=== PATIENT | female | born 1960 | race Caucasian/White ===

== ENCOUNTER 2016-11-09 03:52 | Inpatient (IN) | payer OTHER ==
[2016-11-09] VITALS (9 sets, daily range): BP systolic 90–106; BP diastolic 53–70; PULSE 55–64; TEMP 36.4–37.1; O2SAT 93–97; Ht 157.5 cm; Wt 70.2 kg
[~2016-11-09] VITALS: Ht 157.5 cm; Wt 70.2 kg
[~2016-11-09 03:52] MED LIST: CARI350T28 PO; CITA10TA8 PO; LORA1TAB13 PO; MONT1TAB3 PO; OXYB10TA PO; PRED10TA PO; PROP80TA2 PO; ROPI3TAB PO
[2016-11-09] MEDS ORDERED: NITROGLYCERIN 0.4 MG SL PER TAB CHARGE SL STA ×2 (04:08→04:39)
[2016-11-09] MEDS ORDERED: ASPIRIN 81 MG CHEW PO STA (04:08)
[2016-11-09] MEDS ORDERED: ASPIRIN 324 MG CHEW ONE (04:13)
[2016-11-09 04:21] LABS: HEMATOCRIT 41.3 % (37-47); MEAN CELL VOLUME 93.2 fL (80-100); MEAN CORPUSCULAR HEMOGLOBIN 30.7 pg (25-34); MEAN CORPUSCULAR HGB CONC 32.9 g/dl (32-36); MEAN PLATELET VOLUME 10.3 fL (7.4-10.4); PLATELET COUNT 333 K/uL (130-400); RED BLOOD COUNT 4.43 M/uL (4.2-5.4); WHITE BLOOD COUNT 14.38 K/uL (4.8-10.8)
[2016-11-09 04:36] LABS: ALT/SGPT 36 U/L (12-78); AST/SGOT 15 U/L (15-37); BLOOD UREA NITROGEN 18 mg/dl (7-18); BUN/CREATININE RATIO 23.1 (10-20); CALCIUM 9.1 mg/dl (8.5-10.1); CARBON DIOXIDE 30 mmol/L (21-32); CHLORIDE 107 mmol/L (98-107); CREATININE 0.79 mg/dl (0.60-1.20); GLUCOSE 94 mg/dl (70-99); POTASSIUM 4.2 mmol/L (3.5-5.1); SODIUM 140 mmol/L (136-145)
[2016-11-09 04:39] LABS: ALKALINE PHOSPHATASE 99 U/L (45-117)
--- NOTE | 2016-11-09 04:49 | EMERGENCY ROOM VISIT NOTE ---
ED Visit Note First contact with patient: 03:54 Patient evaluated by me at bedside I agree with the evaluation by the physician workers compensation claims assistant. Patient has left arm pain nausea slight shortness of breath concerning for acute coronary syndrome. Patient's current workup is negative and she is pain-free she will be admitted to the hospitalists for further cardiac evaluation Problem List Medical Problems: (1) Bilateral tubal ligation Status: Resolved (2) Extraction of cataract Status: Resolved (3) Mitral valve prolapse Status: Chronic Current/Historical Medications Scheduled Citalopram Hydrobromide (Celexa), 10 MG PO DAILY Montelukast Sodium (Singulair), 10 MG PO DAILY Oxybutynin Chloride Er (Ditropan Xl), 10 MG PO DAILY Propranolol (Inderal), 80 MG PO BID Ropinirole (Requip), 3 MG PO DAILY Scheduled PRN Carisoprodol (Soma), 350 MG PO TID PRN Lorazepam (Lorazepam), 1 MG PO HS PRN Allergies Coded Allergies: Penicillins (Unverified Allergy, Unknown, 02/17/11) Vital Signs Date Time Temp Pulse Resp B/P (MAP) Pulse Ox O2 Delivery O2 Flow Rate FiO2 11/09/16 04:47 60 18 104/52 96 Nasal Cannula 2.0 11/09/16 04:26 63 18 108/73 95 Room Air 11/09/16 04:11 100 Room Air 11/09/16 04:11 100 Room Air 11/09/16 04:05 100 Room Air 11/09/16 04:04 65 11/09/16 04:03 65 18 145/80 100 Room Air 11/09/16 03:55 36.9 65 18 151/88 97 Room Air Laboratory Results 11/09/16 04:05 Red Blood Count 4.43, Mean Corpuscular Volume 93.2, Mean Corpuscular Hemoglobin 30.7, Mean Corpuscular Hemoglobin Concent 32.9, Mean Platelet Volume 10.3 11/09/16 04:05 Test 11/09/16 04:05 11/09/16 04:17 White Blood Count 14.38 K/uL (4.8-10.8) Red Blood Count 4.43 M/uL (4.2-5.4) Hemoglobin 13.6 g/dL (12.0-16.0) Hematocrit 41.3 % (37-47) Mean Corpuscular Volume 93.2 fL (80-100) Mean Corpuscular Hemoglobin 30.7 pg (25-34) Mean Corpuscular Hemoglobin Concent 32.9 g/dl (32-36) Platelet Count 333 K/uL (130-400) Mean Platelet Volume 10.3 fL (7.4-10.4) RDW Standard Deviation 45.3 fL (36.4-46.3) RDW Coefficient of Variation 13.3 % (11.5-14.5) Anion Gap 3.0 mmol/L (3-11) Est Creatinine Clear Calc Drug Dose 75.7 ml/min Estimated GFR () 98.4 Estimated GFR (Non- 84.9 BUN/Creatinine Ratio 23.1 (10-20) Calcium Level 9.1 mg/dl (8.5-10.1) Total Bilirubin 0.4 mg/dl (0.2-1) Direct Bilirubin < 0.1 mg/dl (0-0.2) Aspartate Amino Transf (AST/SGOT) 15 U/L (15-37) Alanine Aminotransferase (ALT/SGPT) 36 U/L (12-78) Alkaline Phosphatase 99 U/L (45-117) Total Protein 7.8 gm/dl (6.4-8.2) Albumin 3.8 gm/dl (3.4-5.0) Bedside Troponin I < 0.030 ng/ml (0-0.045) Medications Administered Medications (Trade) Dose Ordered Sig/Elsy Route Start Time Stop Time Status Last Admin Dose Admin Nitroglycerin (Nitrostat Tab) 0.4 mg NOW STAT 11/09/16 04:08 11/09/16 04:11 DC 11/09/16 04:16 0.4 MG Aspirin (Aspirin Chew) 324 mg STK-MED ONCE .ROUTE 11/09/16 04:13 11/09/16 04:14 DC 11/09/16 04:15 324 MG Nitroglycerin (Nitrostat Tab) 0.4 mg NOW STAT 11/09/16 04:39 11/09/16 04:41 DC 11/09/16 04:39 0.4 MG Departure Information Referrals Rory Ma M.D. (PCP) Patient Instructions My [facility]
[2016-11-09] MEDS ORDERED: FLUO40CA8 PO (04:58)
[2016-11-09] MEDS ORDERED: MIRT15TA PO (04:58)
[2016-11-09] MEDS ORDERED: LYR50 PO (04:58)
--- NOTE | 2016-11-09 04:58 | History and Physical ---
History & Physical Date & Time of Service: Nov 09, 2016 at 04:58 . Chief Complaint: shoulder pain, chest pain, SOB . Primary Care Physician: Rory Ma M.D. . History of Present Illness Source: patient, family, clinic records, hospital records 56-year-old female followed by Dr. Ma for [facility]. History of mitral valve prolapse, palpitations, and other problems noted below. She had a yard sale at her home yesterday and had been very busy for the past few days preparing for it. Around 6:00 last evening she laid down on the couch. Noted left shoulder pain described as a pressure that lasted for about 10 minutes. A few hours later she noticed some dyspnea and palpitations. Around 3:00 this morning she had recurrent left shoulder pain, dyspnea, nausea. She took 2 aspirin tablets. Came to the ED for evaluation. There she developed midsternal pressure had persistent dyspnea. Ongoing intermittent left shoulder pain. Received 2 doses of nitroglycerin in the ED with improvement of the chest pressure. Mother apparently had a myocardial infarction in her 50s. Patient does not have any known personal risk actors for ischemic heart disease. . Past Medical/Surgical History Chronic and Resolved Medical Problems: (1) Allergic rhinitis Status: Chronic (2) Anxiety Status: Chronic (3) Bilateral tubal ligation Status: Resolved (4) Depression Status: Chronic (6) Legal blindness Status: Chronic (7) Mitral valve prolapse Status: Chronic (8) Nystagmus Status: Chronic Surgical Problems: (1) Status post cataract extraction Status: Chronic (2) Status post tubal ligation Status: Chronic . Family History FATHER Diabetes mellitus MOTHER Myocardial infarction BROTHER Cancer of gallbladder Social History Smoking Status: Never Smoker Alcohol Use: occasionally Drug Use: none Marital Status: Housing status: lives with family Occupational Status: employed Multi-Drug Resistant Organisms History of MDRO: No Allergies Coded Allergies: Penicillins (Unverified Allergy, Unknown, 11/09/16) Home Medications Scheduled Clonazepam (Klonopin), 0 PO UD Fluoxetine (Prozac), 80 MG PO DAILY Mirtazapine (Remeron), 15 MG PO HS Pregabalin (Lyrica), 50 MG PO BID Propranolol HCl (Propranolol HCl ER), 80 MG PO BID Ropinirole (Requip), 3 MG PO HS Scheduled PRN Carisoprodol (Soma), 350 MG PO TID PRN Hydrocodone/Acetaminophen 5MG/325MG (Points 5MG/325MG), 1 TABLET PO Q8 PRN for Pain Lorazepam (Lorazepam), 1 MG PO HS PRN for Sleep Montelukast Sodium (Singulair), 10 MG PO DAILY PRN for ALLERGIES Review of Systems Constitutional: No fever, No weight loss Eyes: + problem reported (legally blind) ENT: + nasal symptoms Respiratory: No cough Cardiovascular: + problem reported (as noted above in HPI) Abdomen: + nausea, + constipation, No vomiting, No diarrhea, No GI bleeding Musculoskeletal: + joint pain (back) Neurologic: + problem reported (neuropathy) Psychiatric: + depression symptoms, + anxiety, + insomnia Endocrine: + fatigue, + excessive thirst, No excessive urination Hematologic / Lymphatic: No abnormal bleeding/bruising, No swollen lymph nodes Integumentary: No rash, No itch, No new/changing skin lesions Physical Exam Vital Signs Date Time Temp Pulse Resp B/P (MAP) Pulse Ox O2 Delivery O2 Flow Rate FiO2 11/09/16 04:47 60 18 104/52 96 Nasal Cannula 2.0 11/09/16 04:26 63 18 108/73 95 Room Air 11/09/16 04:11 100 Room Air 11/09/16 04:11 100 Room Air 11/09/16 04:05 100 Room Air 11/09/16 04:04 65 11/09/16 04:03 65 18 145/80 100 Room Air 11/09/16 03:55 36.9 65 18 151/88 97 Room Air General Appearance: WD/WN, no apparent distress Head: normocephalic, atraumatic Eyes: sclerae normal, + pertinent finding (s/p right iridectomy; horizontal nystagmus) ENT: normal ENT inspection, hearing grossly normal, pharynx normal Neck: supple, no adenopathy, thyroid normal, trachea midline Respiratory/Chest: lungs clear, normal breath sounds, no respiratory distress, no accessory muscle use Cardiovascular: regular rate, rhythm, no edema, no gallop, no JVD, no murmur, normal peripheral pulses Abdomen/GI: normal bowel sounds, non tender, soft, no organomegaly, no pulsatile mass Extremities/Musculoskelatal: no calf tenderness, no pedal edema Neurologic/Psych: no motor/sensory deficits (motor strength 5/5 bilat), alert, oriented x 3, + pertinent finding (lateral nystagmus; anxious) Skin: normal color, warm/dry, no rash Lymphatic: no adenopathy (cervical) Diagnostics Laboratory Results Results Past 24 Hours Test 11/09/16 04:05 11/09/16 04:17 Range/Units White Blood Count 14.38 4.8-10.8 K/uL Red Blood Count 4.43 4.2-5.4 M/uL Hemoglobin 13.6 12.0-16.0 g/dL Hematocrit 41.3 37-47 % Mean Corpuscular Volume 93.2 80-100 fL Mean Corpuscular Hemoglobin 30.7 25-34 pg Mean Corpuscular Hemoglobin Concent 32.9 32-36 g/dl Platelet Count 333 130-400 K/uL Mean Platelet Volume 10.3 7.4-10.4 fL RDW Standard Deviation 45.3 36.4-46.3 fL RDW Coefficient of Variation 13.3 11.5-14.5 % Sodium Level 140 136-145 mmol/L Potassium Level 4.2 3.5-5.1 mmol/L Chloride Level 107 98-107 mmol/L Carbon Dioxide Level 30 21-32 mmol/L Anion Gap 3.0 3-11 mmol/L Blood Urea Nitrogen 18 7-18 mg/dl Creatinine 0.79 0.60-1.20 mg/dl Est Creatinine Clear Calc Drug Dose 75.7 ml/min Estimated GFR () 98.4 Estimated GFR (Non- 84.9 BUN/Creatinine Ratio 23.1 10-20 Random Glucose 94 70-99 mg/dl Calcium Level 9.1 8.5-10.1 mg/dl Total Bilirubin 0.4 0.2-1 mg/dl Direct Bilirubin < 0.1 0-0.2 mg/dl Aspartate Amino Transf (AST/SGOT) 15 15-37 U/L Alanine Aminotransferase (ALT/SGPT) 36 12-78 U/L Alkaline Phosphatase 99 45-117 U/L Total Protein 7.8 6.4-8.2 gm/dl Albumin 3.8 3.4-5.0 gm/dl Bedside Troponin I < 0.030 0-0.045 ng/ml Diagnostic Radiology Portable chest x-ray reviewed by the undersigned. Normal cardiac silhouette. No infiltrates, effusions, CHF, pneumothorax. Formal interpretation by Radiology pending. . EKG EKG performed at 04:03 reviewed and demonstrated NSR at 63 / minute, no acute ST or T-wave abnormalities. . Impression Assessment and Plan SHOULDER PAIN / CHEST PAIN / NAUSEA / SOB / PALPITATIONS Chest pain associated symptoms at rest, but following a few busy days of physical activity. Took aspirin at home and received an additional dose in the ED. Symptoms improved after receiving nitroglycerin in ED. Mother had a myocardial infarction in her 50s. EKG in ED does not show any acute changes. First troponin is normal. Check fasting lipid profile. Check serial cardiac markers and EKGs. Check resting echocardiogram. Check d-dimer with next troponin to screen for thromboembolic disease. Monitor for arrhythmias. Continue propranolol. Further evaluation to be determined after initial studies are completed. Consider noncardiac etiologies of chest pain if evaluation is unremarkable. ANXIETY / DEPRESSION Continue usual medications. DVT PROPHYLAXIS Low risk for DVT at this time. Prophylaxis not indicated. Ambulate. RESUSCITATION STATUS Full resuscitation.. DISPOSITION Observation status on Telemetry Unit. Expected discharge to home. Family Medicine follow-up with Dr. Ma. . VTE Prophylaxis Risk Level: Very Low Given or contraindicated: Treatment not indicated
[2016-11-09] MEDS ORDERED: NITROGLYCERIN 0.4 MG SL PER TAB CHARGE SL PRN (05:00)
[2016-11-09] MEDS ORDERED: HYDR-5688 PO (05:00)
--- NOTE | 2016-11-09 05:07 | EMERGENCY ROOM VISIT NOTE ---
History First contact with patient: 03:54 Chief Complaint: CARDIAC ASSESSMENT Stated Complaint: SOB,INDIGESTION,CHEST PAIN/SHOULDER Nursing Triage Summary: pt c/o feeling tired after eating dinner and then she developed left shoulder pain denies cp or shortness of breath. History of Present Illness The patient is a 56 year old female who presents to the Emergency Room with complaints of left upper shoulder and neck and arm pain since 7:30 8:00 last night with nausea and diaphoresis. Patient states the symptoms are worse when she walks. No direct injury to the area. Patient has mitral valve prolapse. She does not have a senior graphic designer. No recent echo. No recent stress test. Patient does have a family history of heart disease of her mother having a heart attack in her 50s. Patient does not smoke. No blood pressure or cholesterol or diabetes either. No recent travel. Patient denies back pain, leg pain or swelling, abdominal pain, vomiting, diarrhea. She is tolerate by mouth fluids but has a lack of appetite. Review of Systems See HPI for pertinent positives & negatives. A total of 10 systems reviewed and were otherwise negative. Past Medical/Surgical History Medical Problems: (1) Bilateral tubal ligation (2) Chest pain (3) Extraction of cataract (4) Mitral valve prolapse Social History Smoking Status: Never Smoker Alcohol Use: occasionally Drug Use: none Marital Status: Housing Status: lives with significant other Occupation Status: employed Current/Historical Medications Scheduled Fluoxetine (Prozac), 80 MG PO DAILY Mirtazapine (Remeron), 15 MG PO HS Pregabalin (Lyrica), 50 MG PO BID Propranolol (Inderal), 80 MG PO BID Ropinirole (Requip), 3 MG PO DAILY Scheduled PRN Carisoprodol (Soma), 350 MG PO TID PRN Hydrocodone/Acetaminophen 5MG/325MG ([place] 5MG/325MG), 1 TABLET PO Q8 PRN for Pain Lorazepam (Lorazepam), 1 MG PO HS PRN for Sleep Montelukast Sodium (Singulair), 10 MG PO DAILY PRN for ALLERGIES Miscellaneous Medications Prednisone (Prednisone), 10 MG PO Physical Exam Vital Signs Date Time Temp Pulse Resp B/P (MAP) Pulse Ox O2 Delivery O2 Flow Rate FiO2 11/09/16 04:47 60 18 104/52 96 Nasal Cannula 2.0 11/09/16 04:26 63 18 108/73 95 Room Air 11/09/16 04:11 100 Room Air 11/09/16 04:11 100 Room Air 11/09/16 04:05 100 Room Air 11/09/16 04:04 65 11/09/16 04:03 65 18 145/80 100 Room Air 11/09/16 03:55 36.9 65 18 151/88 97 Room Air Physical Exam VITALS: Vitals are noted on the nurse's note and reviewed by myself. Vital signs stable. GENERAL: Pleasant female, in no acute distress, nondiaphoretic, well-developed well-nourished. SKIN: The skin was without rashes, erythema, edema, or bruising. There is no tenting of the skin. Capillary reflex less than 2 seconds. HEAD: Normocephalic atraumatic. EARS: External auditory canals clear, tympanic membranes pearly donaldson without erythema or effusion bilaterally. EYES: Pupils equal round and reactive to light and accommodation. Conjunctivae without injection, sclerae without icterus. Extraocular movements intact. NOSE: Patent, turbinates without inflammation or discharge. MOUTH: Mucous membranes moist. Pharynx without erythema or exudate. Uvula midline. Airway patent. Tongue does not deviate. NECK: Supple without nuchal rigidity. No lymphadenopathy. No thyromegaly. Cervical spine is nontender. No JVD. HEART: Regular rate and rhythm LUNGS: Clear to auscultation bilaterally without wheezes, rales or rhonchi. No dullness to percussion. No retractions or accessory muscle use. ABDOMEN: Positive bowel sounds x 4. Normal tympanic percussion. Soft, nontender, without masses or organomegaly. Kang sign negative. No guarding or rebound tenderness. MUSCULOSKELETAL: No muscle atrophy, erythema, or edema noted. NEURO: Patient was alert and oriented to person place and time. Normal sensation to light and sharp touch. No focal neurological deficits. Medical Decision & Procedures Laboratory Results 11/09/16 04:05 Red Blood Count 4.43, Mean Corpuscular Volume 93.2, Mean Corpuscular Hemoglobin 30.7, Mean Corpuscular Hemoglobin Concent 32.9, Mean Platelet Volume 10.3 11/09/16 04:05 Test 11/09/16 04:05 11/09/16 04:17 White Blood Count 14.38 K/uL (4.8-10.8) Red Blood Count 4.43 M/uL (4.2-5.4) Hemoglobin 13.6 g/dL (12.0-16.0) Hematocrit 41.3 % (37-47) Mean Corpuscular Volume 93.2 fL (80-100) Mean Corpuscular Hemoglobin 30.7 pg (25-34) Mean Corpuscular Hemoglobin Concent 32.9 g/dl (32-36) Platelet Count 333 K/uL (130-400) Mean Platelet Volume 10.3 fL (7.4-10.4) RDW Standard Deviation 45.3 fL (36.4-46.3) RDW Coefficient of Variation 13.3 % (11.5-14.5) Anion Gap 3.0 mmol/L (3-11) Est Creatinine Clear Calc Drug Dose 75.7 ml/min Estimated GFR () 98.4 Estimated GFR (Non- 84.9 BUN/Creatinine Ratio 23.1 (10-20) Calcium Level 9.1 mg/dl (8.5-10.1) Total Bilirubin 0.4 mg/dl (0.2-1) Direct Bilirubin < 0.1 mg/dl (0-0.2) Aspartate Amino Transf (AST/SGOT) 15 U/L (15-37) Alanine Aminotransferase (ALT/SGPT) 36 U/L (12-78) Alkaline Phosphatase 99 U/L (45-117) Total Protein 7.8 gm/dl (6.4-8.2) Albumin 3.8 gm/dl (3.4-5.0) Bedside Troponin I < 0.030 ng/ml (0-0.045) Medications Administered Medications (Trade) Dose Ordered Sig/Elsy Route Start Time Stop Time Status Last Admin Dose Admin Nitroglycerin (Nitrostat Tab) 0.4 mg NOW STAT SL 11/09/16 04:08 11/09/16 04:11 DC 11/09/16 04:16 0.4 MG Aspirin (Aspirin Chew) 324 mg STK-MED ONCE .ROUTE 11/09/16 04:13 11/09/16 04:14 DC 11/09/16 04:15 324 MG Nitroglycerin (Nitrostat Tab) 0.4 mg NOW STAT SL 11/09/16 04:39 11/09/16 04:41 DC 11/09/16 04:39 0.4 MG ED Course Prior records/ancillary studies reviewed. Triage Nursing notes reviewed. Additional history obtained from family. The patient's history was concerning for chest pain. Differential diagnosis: Etiologies such as cardiac ischemia, aortic dissection, pulmonary embolism, pneumonia, pneumothorax, musculoskeletal, infections, pericarditis, myocarditis , esophageal rupture, gastrointestinal, as well as others were entertained. Physical examination: As above. ER treatment provided: ASA, nitro On reassessment the patient felt better. Diagnostic interpretation by me: The electrocardiogram was negative for pathologic change. Normal sinus, normal intervals, no acute ST-T wave changes. Impression normal sinus rhythm interpreted by myself The labs revealed negative troponin. Stable H&H Imaging studies: Chest x-ray with small secure density in the right lower lung base, no pneumothorax or free air per my interpretation Consultation: A consultation was placed with the hospitalist, Dr Short. The case was discussed and diagnostics were reviewed. The patient was evaluated in the ER for further treatment. Exam and history seem consistent with concerns for possible cardiac in etiology. Patient felt better after the nitroglycerin. Patient had left-sided neck, shoulder and arm pain with diaphoresis and nausea that was worse with exertion. There is a family history of heart disease. No recent stress test or echo. Patient will be evaluated by medicine for possible admission. By the evaluation outlined above emergent etiologies such as aortic dissection , pulmonary embolism, pneumonia, pneumothorax, infections, pericarditis, myocarditis, gastrointestinal, as well as others were deemed relatively unlikely. The pt informed about the findings as listed above. All questions were answered and pleased with the treatment. Case reviewed with my attending. Medical Decision As above Medication Reconcilliation Current Medication List: was personally reviewed by me Blood Pressure Screening Patient's blood pressure: Elevated blood pressure Blood pressure disposition: Elevated BP felt to be situational Impression Primary Impression: Diaphoresis Additional Impressions: Nausea Neck pain Left upper arm pain Departure Information Dispostion Being Evaluated By Hospitalist Condition FAIR Referrals Rory Ma M.D. (PCP) Patient Instructions My [facility] Problem Qualifiers
[2016-11-09 05:08] LABS: BASO % 0.1 %; BASO ABS # 0.02 K/uL (0-0.2); COMPLETE YES; EOS % 1.2 %; HYPERSEGMENTED POLYS 1+; IG% 0.5 %; LYMPH % 37.4 %; LYMPH ABS # 5.38 K/uL (1.2-3.4); NEUT % 51.8 %
[2016-11-09] MEDS ORDERED: CLON1TAB3 PO (05:36)
[2016-11-09] MEDS ORDERED: INDSR80 PO (05:36)
[2016-11-09] MEDS ORDERED: IV FLUIDS COMPLETED PRN (06:00)
[2016-11-09 07:06] LABS: CHOLESTEROL/HDL RATIO 5.5
--- NOTE | 2016-11-09 08:01 | DIAGNOSTIC IMAGING REPORT ---
CHEST ONE VIEW PORTABLE CLINICAL HISTORY: Shortness of breath, chest pain. COMPARISON STUDY: Chest radiograph December 12, 2012. FINDINGS: A 1.5 cm density projecting over the right lower hemithorax is likely related to a rib. There is no pneumothorax or pleural effusion. Cardiac size is normal. Mediastinal contours are normal. There is no evidence of pulmonary edema. The appearance of the chest is unchanged. IMPRESSION: No acute cardiopulmonary findings. Electronically signed by: Reed Mendiola M.D. 11/09/2016 8:00 AM Dictated Date/Time: 11/09/2016 7:58 AM
[2016-11-09] MEDS: PREGABALIN 50 MG CAP PO SCH ×2 (08:08→21:10)
[2016-11-09] MEDS: CLONAZEPAM 0.5 MG TAB PO SCH (08:08)
[2016-11-09] MEDS: FLUOXETINE HCL 20 MG CAP PO SCH (08:09)
[2016-11-09] MEDS: ASPIRIN 81 MG ECTAB PO SCH (08:09)
[2016-11-09] MEDS: PROPRANOLOL HCL 80 MG LA CAP PO SCH ×2 (08:12→21:11)
--- NOTE | 2016-11-09 08:58 | Progress Note ---
Medicine Progress Note Date & Time of Visit: Nov 09, 2016 at 08:53. Subjective patient seen sitting up in bed, comfortable states chest pain and shoulder pain has resolved reports palpitations no dizziness, headache, nausea, abdominal pain apart from shoulder pain, patient also developed chest tightness, nausea and indigestion early this morning resolved with nitro mother had heart attack at the age of 50s brother just had a heart attack with 2 stents age 56 Objective Last 8 Hrs Date Time Temp Pulse Resp B/P (MAP) Pulse Ox O2 Delivery O2 Flow Rate FiO2 11/09/16 08:11 64 103/61 (75) 11/09/16 08:07 62 93/61 (72) 11/09/16 07:45 36.4 59 18 90/54 (66) 97 11/09/16 06:29 36.8 60 16 99/66 96 Nasal Cannula 2.0 11/09/16 05:34 57 18 103/60 96 Nasal Cannula 2.0 11/09/16 04:47 60 18 104/52 96 Nasal Cannula 2.0 11/09/16 04:26 63 18 108/73 95 Room Air 11/09/16 04:11 100 Room Air 11/09/16 04:11 100 Room Air 11/09/16 04:05 100 Room Air 11/09/16 04:04 65 11/09/16 04:03 65 18 145/80 100 Room Air 11/09/16 03:55 36.9 65 18 151/88 97 Room Air Physical Exam: General- oriented x 3 not in distress, speaks in sentences with no effort Eyes- EOMI, anicteric ENT- oropharynx clear Neck- supple, no JVD, no adenopathy, no thyromegaly Lungs- clear breath sounds bilaterally Heart- regular rhythm; no murmur, normal rate Abdomen- normal bowel sounds, soft, nontender Extremities- no pretibial edema, no calf tenderness Neuro- alert, oriented x 3; no gross focal deficits Skin- warm & dry Laboratory Results: Last 24 Hours Test 11/09/16 04:05 11/09/16 04:17 11/09/16 06:49 White Blood Count 14.38 K/uL Red Blood Count 4.43 M/uL Hemoglobin 13.6 g/dL Hematocrit 41.3 % Mean Corpuscular Volume 93.2 fL Mean Corpuscular Hemoglobin 30.7 pg Mean Corpuscular Hemoglobin Concent 32.9 g/dl Platelet Count 333 K/uL Mean Platelet Volume 10.3 fL Neutrophils (%) (Auto) 51.8 % Lymphocytes (%) (Auto) 37.4 % Monocytes (%) (Auto) 9.0 % Eosinophils (%) (Auto) 1.2 % Basophils (%) (Auto) 0.1 % Neutrophils # (Auto) 7.44 K/uL Lymphocytes # (Auto) 5.38 K/uL Monocytes # (Auto) 1.30 K/uL Eosinophils # (Auto) 0.17 K/uL Basophils # (Auto) 0.02 K/uL RDW Standard Deviation 45.3 fL RDW Coefficient of Variation 13.3 % Immature Granulocyte % (Auto) 0.5 % Immature Granulocyte # (Auto) 0.07 K/uL Hypersegmented Polys 1+ Sodium Level 140 mmol/L Potassium Level 4.2 mmol/L Chloride Level 107 mmol/L Carbon Dioxide Level 30 mmol/L Anion Gap 3.0 mmol/L Blood Urea Nitrogen 18 mg/dl Creatinine 0.79 mg/dl Est Creatinine Clear Calc Drug Dose 75.7 ml/min Estimated GFR () 98.4 Estimated GFR (Non- 84.9 BUN/Creatinine Ratio 23.1 Random Glucose 94 mg/dl Calcium Level 9.1 mg/dl Total Bilirubin 0.4 mg/dl Direct Bilirubin < 0.1 mg/dl Aspartate Amino Transf (AST/SGOT) 15 U/L Alanine Aminotransferase (ALT/SGPT) 36 U/L Alkaline Phosphatase 99 U/L Total Protein 7.8 gm/dl Albumin 3.8 gm/dl Triglycerides Level 263 mg/dl Cholesterol Level 338 mg/dl HDL Cholesterol 62 mg/dl LDL Cholesterol, Calculated 223 mg/dl VLDL Cholesterol, Calculated 53 mg/dl Cholesterol/HDL Ratio 5.5 Bedside Troponin I < 0.030 ng/ml Assessment & Plan SHOULDER PAIN / CHEST PAIN / NAUSEA / SOB / PALPITATIONS - risk factors: heart attack - mother and brother age 50s; Dyslipidemia - first troponin negative ekg non specific t wave changes in inferior lead - follow cardiac markers, d dimer echo - will consult Cardiology DYSLIPIDEMIA - LDL 223 Chol 338 TG 263 - start Simvastatin 20mg ANXIETY / DEPRESSION stable overall continue usual meds DVT PROPHYLAXIS ambulate RESUSCITATION STATUS Full resuscitation.. DISPOSITION anticipate d/c home when medically stable ff up with Dr. Ma Current Inpatient Medications: Current Inpatient Medications Medications (Trade) Dose Ordered Sig/Elsy Route Start Time Stop Time Status Last Admin Dose Admin Acetaminophen (Tylenol Tab) 650 mg Q4H PRN PO 11/09/16 05:00 12/09/16 04:59 Nitroglycerin (Nitrostat Tab) 0.4 mg UD PRN SL 11/09/16 05:00 12/09/16 04:59 Aspirin (Ecotrin Tab) 81 mg QAM PO 11/09/16 09:00 12/09/16 08:59 11/09/16 08:09 81 MG Carisoprodol (Soma Tab) 350 mg TID PRN PO 11/09/16 05:45 12/09/16 05:44 Clonazepam (Klonopin Tab) 1 mg HS PO 11/09/16 21:00 12/09/16 20:59 Fluoxetine HCl (Prozac Cap) 80 mg DAILY PO 11/09/16 09:00 12/09/16 08:59 11/09/16 08:09 80 MG Acetaminophen/ Hydrocodone Bitart ([place] 5/325 Tab) 1 tab Q8 PRN PO 11/09/16 05:45 11/23/16 05:44 Mirtazapine (Remeron Tab) 15 mg HS PO 11/09/16 21:00 12/09/16 20:59 Pregabalin (Lyrica Cap) 50 mg BID PO 11/09/16 09:00 12/09/16 08:59 11/09/16 08:08 50 MG Propranolol HCl (Inderal LA Cap) 80 mg BID PO 11/09/16 09:00 12/09/16 08:59 11/09/16 08:12 80 MG Ropinirole HCl (Requip Tab) 3 mg HS PO 11/09/16 21:00 12/09/16 20:59 Clonazepam (Klonopin Tab) 0.5 mg DAILY PO 11/09/16 09:00 12/09/16 08:59 11/09/16 08:08 0.5 MG Miscellaneous (Iv Fluids Completed) 1 ea PRN PRN N/A 11/09/16 06:00 11/09/17 05:59
--- NOTE | 2016-11-09 12:10 | ECHOCARDIOGRAM REPORT ---
*NOTICE TO RECEIVING REPUBLICAN AGENCY This information is strictly Confidential and protected under [place] law. [place] law prohibits you from making any further disclosure of this information unless further disclosure is expressly permitted by the written consent of the person to whom it pertains or is authorized by law. A general authorization for the release of medical or other information is not sufficient for this purpose. Hospital accepts no responsibility if the information is made available to any other person, INCLUDING THE PATIENT. Interpretation Summary * Name: AMARIS ROSADO Study Date: 11/09/2016 09:52 AM BP: 103/60 mmHg * Patient Location: [facility]\S\N286\S\1 HR: 65 * : 1960 (M/d/yyyy) Gender: Female Height: 62 in * Age: 56 yrs Ethnicity: CA Weight: 158 lb * Ordering Physician: Rob Cullen * Referring Physician: Self, Referred * Performed By: Clyde Sheriff RDCS * * Reason For Study: Chest pain * BSA: 1.7 m2 * -- Conclusions -- * No significant change compared to previous study. * Normal LV chamber size and wall thickness. * Normal LV systolic function, EF 60-65%. * No segmental left ventricular wall motion abnormalities are noted. * Grade II diastolic dysfunction. * Moderate mitral valve prolapse with mild to moderate mitral regurgitation. Procedure Details * A complete two-dimensional transthoracic echocardiogram was performed (2D, M-mode, Doppler and color flow Doppler). * The study was technically adequate. Left Ventricle * The left ventricle is normal in size. * There is normal left ventricular wall thickness. * Left ventricular systolic function is normal. * No segmental left ventricular wall motion abnormalities are noted. * Ejection Fraction = 60-65%. * The left ventricular wall motion is normal. Right Ventricle * The right ventricular cavity size is normal (basal dimension <4.2 cm in right ventricular apical 4-chamber view). * The right ventricular systolic function is normal as assessed by tricuspid annular plane systolic excursion (TAPSE) (normal >1.5 cm). Atria * The left atrial size is normal. * Right atrial size is normal. * No ASD detected; PFO is not assessed. Mitral Valve * The mitral valve leaflets appear thickened, but open well. * There is moderate mitral valve prolapse. * There is no mitral valve stenosis. * There is mild to moderate mitral regurgitation. Tricuspid Valve * The tricuspid valve is normal in structure and function. Aortic Valve * The aortic valve is normal in structure and function. Pulmonic Valve * The pulmonary valve is not well seen, but the Doppler examination is normal without significant regurgitation or stenosis. Great Vessels * The aortic root and proximal ascending aorta are normal sized. Pericardium/Pleural * There is no pericardial effusion. Left Ventricular Diastolic Function * Diastolic dysfunction, Grade II (pseudonormalization pattern). MMode 2D Measurements and Calculations IVSd 0.91 cm IVSs 1.4 cm LVIDd 4.5 cm LVIDs 2.5 cm LVPWd 0.84 cm LVPWs 1.5 cm IVS/LVPW 1.1 FS 44.5 % EDV(Teich) 93.2 ml ESV(Teich) 22.5 ml EF(Teich) 75.9 % EDV(cubed) 92.1 ml ESV(cubed) 15.8 ml EF(cubed) 82.9 % % IVS thick 49.5 % % LVPW thick 73.0 % LV mass(C)d 128.7 grams LV mass(C)dI 74.4 grams/m\S\2 LV mass(C)s 113.0 grams LV mass(C)sI 65.3 grams/m\S\2 SV(Teich) 70.7 ml SI(Teich) 40.9 ml/m\S\2 SV(cubed) 76.3 ml SI(cubed) 44.1 ml/m\S\2 EPSS 0.61 cm Ao root diam 2.6 cm Ao root area 5.3 cm\S\2 LA dimension 4.5 cm asc Aorta Diam 2.8 cm LA/Ao 1.7 LVOT diam 2.0 cm LVOT area 3.1 cm\S\2 LVAd ap4 22.1 cm\S\2 LVLd ap4 6.9 cm EDV(MOD-sp4) 58.4 ml LVAs ap4 11.9 cm\S\2 LVLs ap4 5.7 cm ESV(MOD-sp4) 22.3 ml EF(MOD-sp4) 61.8 % LVAd ap2 22.8 cm\S\2 LVLd ap2 7.1 cm EDV(MOD-sp2) 61.6 ml LVAs ap2 12.2 cm\S\2 LVLs ap2 5.8 cm ESV(MOD-sp2) 22.7 ml EF(MOD-sp2) 63.1 % SV(MOD-sp4) 36.1 ml SI(MOD-sp4) 20.9 ml/m\S\2 SV(MOD-sp2) 38.9 ml SI(MOD-sp2) 22.5 ml/m\S\2 Doppler Measurements and Calculations MV E max sergio 72.3 cm/sec MV A max sergio 58.2 cm/sec MV E/A 1.2 MV dec time 0.20 sec Ao V2 max 115.6 cm/sec Ao max PG 5.3 mmHg Ao max PG (full) 2.7 mmHg TAMRA(V,A) 2.2 cm\S\2 TAMRA(V,D) 2.2 cm\S\2 AI max sergio 279.6 cm/sec AI max PG 31.3 mmHg AI dec slope 105.4 cm/sec\S\2 AI P1/2t 777.1 msec LV V1 max PG 2.7 mmHg LV V1 max 82.0 cm/sec PA V2 max 80.7 cm/sec PA max PG 2.6 mmHg PA acc slope 267.9 cm/sec\S\2 PA acc time 0.19 sec PI end-d sergio 79.9 cm/sec PA pr(Accel) -6.56 mmHg
[2016-11-09] MEDS ORDERED: OPTIRAY 320 IV PRN (13:30)
--- NOTE | 2016-11-09 13:57 | CARDIOLOGY CONSULTATION ---
DATE OF CONSULTATION: 11/09/2016 DATE OF CONSULTATION: 11/09/2016 CONSULTATION REQUESTED BY: Dr. Goldberg. REASON FOR CONSULTATION: Chest pain. HISTORY OF PRESENT ILLNESS: Mrs. Lemons is a very pleasant 56-year-old woman who presented to [facility] early in the a.m. of 11/09/2016 with a complaint of shoulder and chest pain. The patient states that she was in her normal state of health yesterday when she was holding an indoor yard sale. She states that she was not overly exerting herself however at the end of the day when she sat down she was abnormally tired. She fell asleep upright in a chair which is very unusual for her and a few hours later when her came home, she awoke and she had severe shoulder pain. She described her left shoulder pain as a severe pressure sensation as though someone was digging their fist into her shoulder. It was very severe and it did radiate down her left arm. The pain was severe enough that it took her breath away, but she denied any associated diaphoresis, nausea, palpitations, lightheadedness, dizziness, or syncope. That pain resolved after approximately 10 minutes. However, throughout the night she was unable to rest and unable to get comfortable. She became nauseous and just had an overall sense of not feeling well. She finally woke her up in the middle of the night and came into the Emergency Department. In the Emergency Department, she was given 1 sublingual nitroglycerin and shortly thereafter she developed chest pressure. She states that this was new. She did not have this before. She described it as a pressure sensation in the middle of her chest without radiation and was also associated with shortness of breath. This was improved though after the second nitroglycerin. Since then she has been feeling okay. She states that she is just overall very tired today. She states that she had a similar episode of shoulder pain approximately 1 year ago and an echocardiogram was unremarkable at that point but no ischemic evaluation was undertaken. PAST SURGICAL HISTORY: 1. Tubal ligation. 2. Cataract surgery. MEDICAL ILLNESSES: 1. Mitral valve prolapse with moderate mitral regurgitation. 2. Chronic sinusitis. 3. Nocturnal hypoxemia. 4. Insomnia. 5. History of panic disorder. 6. Legally blind. FAMILY HISTORY: Remarkable for mother had a heart attack at age 50. Denies any sudden cardiac . SOCIAL HISTORY: Denies any alcohol, tobacco or recreational drug use. She is . She lives at home with her . REVIEW OF SYSTEMS: As per HPI, all other review of systems reviewed and negative at this time. ALLERGIES: PENICILLIN. MEDICATIONS AN OUTPATIENT: 1. Propranolol 80 mg b.i.d. 2. Percocet as needed. 3. Lyrica b.i.d. 4. Soma 3 times a day. 5. Ropinirole at bedtime. 6. Klonopin. 7. Remeron. 8. Ditropan daily. PHYSICAL EXAMINATION: VITALS: Temperature 37.1, pulse 62, respiratory rate 12, blood pressure 91/57. GENERAL: Awake, alert, oriented x3 in no acute distress. HEAD, EYES, EARS, NOSE, AND THROAT: Normocephalic, atraumatic. Pupils equal, round, and reactive to light and accommodation. Extraocular muscles intact, difficulty focusing. Anicteric sclerae. Moist mucous membranes. NECK: No JVD, no bruit. CARDIOVASCULAR: Regular. No S4. Normal S1 and S2. Slight 2/6 holosystolic ejection murmur greatest at the left sternal border with radiation to the left axilla. No rubs. PULMONARY: Clear to auscultation bilaterally. No rales, rhonchi, or wheezing. ABDOMEN: Bowel sounds x4, soft. No rebound, guarding, tenderness. No organomegaly. EXTREMITIES: No clubbing, cyanosis or edema. +2 pedal pulses bilaterally. SKIN: Warm and dry. MUSCULOSKELETAL: Deep palpation of the left shoulder was unable to elicit symptoms. TEST RESULTS: Laboratory studies of significance troponin negative x2. Total cholesterol of 338. Triglycerides 263, LDL 223, HDL 62. A 12-lead EKG performed in the Emergency Department independently reviewed at this time shows normal sinus rhythm at 63 beats per minute, normal axis, normal intervals, nonspecific diffuse T-wave flattening. A 2D echocardiogram independently reviewed. Full report to follow shows normal LV systolic function without regional wall motion abnormality, EF 60-65%, mild mitral valve prolapse with mild to moderate mitral regurgitation. IMPRESSIONS: 1. Chest and shoulder pain suspicious for unstable angina. 2. Dyslipidemia. 3. Mitral valve prolapse with mild mitral regurgitation. RECOMMENDATIONS: It was my pleasure to see Mrs. Lemons in consultation today. The patient was counseled from a cardiac standpoint given her history of dyslipidemia and family history of her mother having myocardial infarction before her age, I do believe further ischemic evaluation is warranted. So at this time, her cardiac enzymes will be trended and will plan on performing a stress echocardiogram in the near future. The patient was given the option of remaining inpatient until Friday morning to have the procedure done or doing it as an outpatient. She states that she would prefer remain an inpatient. Otherwise, she has been started on aspirin. She will also be started on a statin today for her significant LDL. Thank you very much for allowing me to participate in the care of your patient.
--- NOTE | 2016-11-09 14:01 | DIAGNOSTIC IMAGING REPORT ---
BILATERAL LOWER EXTREMITY VENOUS DOPPLER CLINICAL HISTORY: Elevated d-dimer. Chest pain. COMPARISON STUDY: No previous studies for comparison. TECHNIQUE: Sonography of the deep venous system of the bilateral lower extremities was performed. Compression and augmentation were evaluated. FINDINGS: The bilateral common femoral, superficial femoral and popliteal veins were compressible. Augmentation was normal. Flow was shown within the deep calf vessels. IMPRESSION: No evidence of deep venous thrombus within the bilateral lower extremities. Electronically signed by: Reed Mendiola M.D. 11/09/2016 2:00 PM Dictated Date/Time: 11/09/2016 1:59 PM
--- NOTE | 2016-11-09 14:56 | DIAGNOSTIC IMAGING REPORT ---
CT ANGIOGRAPHY OF THE CHEST, PULMONARY EMBOLUS PROTOCOL CLINICAL HISTORY: Chest pain. Elevated d-dimer. COMPARISON STUDY: Chest radiograph December 12, 2012 and November 09, 2016. TECHNIQUE: Following IV administration of 93 mL of Optiray-320, helical axial images of the chest were obtained utilizing the pulmonary embolus protocol. Maximal intensity projections and sagittal and coronal reformats were viewed on an independent 3D workstation. IV contrast was administered without complication. A dose lowering technique was utilized adhering to the principles of ALARA. CT DOSE: 266.06 mGy.cm FINDINGS: No pulmonary emboli are identified. There is no evidence of thoracic aortic dissection. The size of the heart is normal. There is no pericardial effusion. Central airways are patent. There is no consolidation to suggest pneumonia. No pneumothorax or pleural effusion is present. There are old right-sided rib fractures. Bony thorax and upper abdomen are unremarkable. There are no enlarged thoracic lymph nodes. IMPRESSION: 1. No pulmonary emboli identified. 2. No acute intrathoracic findings. Electronically signed by: Reed Mendiola M.D. 11/09/2016 2:55 PM Dictated Date/Time: 11/09/2016 2:49 PM
[2016-11-09] MEDS ORDERED: ONDANSETRON INJ 2 MG/ML 2 ML VIAL IV PRN (15:30)
[2016-11-09] MEDS: HYDROCODONE/ACETAMOPHEN 5/325MG TAB PO PRN (15:41)
[2016-11-09] MEDS: SIMVASTATIN 20 MG TAB PO SCH (21:10)
[2016-11-09] MEDS: MIRTAZAPINE TAB 15 MG TAB PO SCH (21:10)
[2016-11-09] MEDS: CLONAZEPAM 1 MG TAB PO SCH (21:10)
[2016-11-09] MEDS: ROPINIROLE HCL 1 MG TAB PO SCH (21:10)
[2016-11-10] VITALS (8 sets, daily range): BP systolic 93–119; BP diastolic 54–76; PULSE 54–100; TEMP 36.5–37.5; O2SAT 92–98
[2016-11-10] MEDS: PREGABALIN 50 MG CAP PO SCH (08:07)
[2016-11-10] MEDS: CLONAZEPAM 0.5 MG TAB PO SCH (08:07)
[2016-11-10] MEDS: PROPRANOLOL HCL 80 MG LA CAP PO SCH ×2 (08:07→20:38)
[2016-11-10] MEDS: ASPIRIN 81 MG ECTAB PO SCH (08:07)
[2016-11-10] MEDS: FLUOXETINE HCL 20 MG CAP PO SCH (08:08)
[2016-11-10] MEDS: CARISOPRODOL 350 MG TAB PO PRN ×2 (08:08→21:06)
--- NOTE | 2016-11-10 09:58 | Cardiology Follow-Up ---
Subjective Subjective Date of Service: Nov 10, 2016. Pt evaluation today including: conversation w/ patient, physical exam, chart review, lab review, review of studies, review of inpatient medication list Additional Details: Pt seen and examined, states that she still has shoulder/arm discomfort, improved with Soma. Denies cp, sob, palpitations, lightheadedness or dizziness. Tele reviewed: sinus rhythm without arrhythmia or significant ectopy. Problem List Medical Problems: (1) Diaphoresis Status: Acute (2) Left upper arm pain Status: Acute (3) Nausea Status: Acute (4) Neck pain Status: Acute Review of Systems Respiratory: No see HPI, No cough, No sputum, No wheezing, No shortness of breath, No dyspnea on exertion, No dyspnea at rest, No hemoptysis, No problem reported Cardiac: No see HPI, No chest pain, No orthopnea, No PND, No edema, No claudication, No palpitations, No problem reported Musculoskeletal: + muscle pain Objective Vital Signs Last Vital Signs Documentation Date Time Temp Pulse Resp B/P (MAP) Pulse Ox O2 Delivery O2 Flow Rate FiO2 11/10/16 08:06 60 100/65 (77) 11/10/16 08:00 Room Air 11/10/16 07:40 37.2 18 94 11/09/16 06:29 2.0 Physical Exam: General Appearance: WD/WN, no apparent distress Eyes: bilateral eyes normal inspection, bilateral eyes PERRL, bilateral eyes EOMI ENT: normal ENT inspection, hearing grossly normal, pharynx normal Neck: supple, no adenopathy, thyroid normal, no JVD, no carotid bruits, trachea midline Respiratory/Chest: chest non-tender, lungs clear, normal breath sounds, no respiratory distress, no accessory muscle use Cardiovascular: regular rate, rhythm, no edema, no JVD, no murmur, + gallop/S4 Abdomen: normal bowel sounds, non tender, soft, no organomegaly, no pulsatile mass Extremities: normal inspection, no pedal edema, no calf tenderness 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 chest pain unclear etiology ischemia work up unremarkable so far ekg, trop and echocardiogram unremarkable for stress in AM npo after midnight 2. cervical radiculopathy on Soma may benefit from pain management eval as outpatient
[2016-11-10] MEDS: ACETAMINOPHEN 325 MG TAB PO PRN (11:58)
[2016-11-10] MEDS: HYDROCODONE/ACETAMOPHEN 5/325MG TAB PO PRN (15:32)
[2016-11-10] MEDS ORDERED: LIDODERM (LIDOCAINE) PATCH 5% TD ONE (16:41)
[2016-11-10] MEDS: CLINDAMYCIN HCL 150 MG CAP PO SCH (17:02)
[2016-11-10] MEDS: MIRTAZAPINE TAB 15 MG TAB PO SCH (20:37)
[2016-11-10] MEDS: ROPINIROLE HCL 1 MG TAB PO SCH (20:38)
[2016-11-10] MEDS: SIMVASTATIN 20 MG TAB PO SCH (20:38)
[2016-11-10] MEDS: CLONAZEPAM 1 MG TAB PO SCH (20:52)
--- NOTE | 2016-11-10 21:18 | Progress Note ---
Medicine Progress Note Date & Time of Visit: Nov 10, 2016 at 21:11. Subjective patient seen resting in bed, comfortable, son at bedside denies chest pain but states she feels winded and tired with walking to the bathroom also has persistent low back pain, radiating to the left leg, numbness on both feet, affecting her gait denies incontinence reports left breast pain- tenderness, no discharge, fever/chills no other symptoms Objective Last 8 Hrs Date Time Temp Pulse Resp B/P (MAP) Pulse Ox O2 Delivery O2 Flow Rate FiO2 11/10/16 19:04 37.5 100 16 105/61 (76) 92 11/10/16 19:00 37.2 71 20 106/70 (82) 94 11/10/16 16:00 Room Air 11/10/16 14:58 36.9 69 18 97/54 (68) 92 Physical Exam: General- oriented x 3 not in distress, speaks in sentences with no effort Eyes- anicteric Neck- supple, no JVD Lungs- clear breath sounds bilaterally, no rales/wheezes Heart- regular rhythm; no murmur, normal rate Breast- right breast essentially normal left breast: no erythema, warmth, (+) tenderness on the 10 oclock position, mild tenderness on 8 o clock position Abdomen- normal bowel sounds, soft, nontender Extremities- no pretibial edema, no calf tenderness Back- no tenderness, (+) straight leg test left Neuro- alert, oriented x 3; sensation 75% on lower ext, no other gross focal deficits Skin- warm & dry Assessment & Plan SHOULDER PAIN / CHEST PAIN / NAUSEA / SOB / PALPITATIONS - risk factors: heart attack - mother and brother age 50s; Dyslipidemia - cardiac markers negative ekg non specific t wave changes in inferior lead - for stress test in AM per cardiology on Aspirin, Statin LOW BACK PAIN - foot numbness - likely sciatica - check Lumbar spine MRI - Lidoderm patch warm compress patient would like to discontinue Lyrica as it gives her fatigue, possible chest pain may need Ortho, Pain Management consult LEFT BREAST PAIN - possible Mastitis - check US - start empiric Clindamycin monitor DYSLIPIDEMIA - LDL 223 Chol 338 TG 263 - started Simvastatin 20mg ANXIETY / DEPRESSION stable overall continue usual meds DVT PROPHYLAXIS ambulate SCDs RESUSCITATION STATUS Full resuscitation.. DISPOSITION anticipate d/c home when medically stable ff up with Dr. Ma Current Inpatient Medications: Current Inpatient Medications Medications (Trade) Dose Ordered Sig/Elsy Route Start Time Stop Time Status Last Admin Dose Admin Acetaminophen (Tylenol Tab) 650 mg Q4H PRN PO 11/09/16 05:00 12/09/16 04:59 11/10/16 11:58 650 MG Nitroglycerin (Nitrostat Tab) 0.4 mg UD PRN SL 11/09/16 05:00 12/09/16 04:59 Aspirin (Ecotrin Tab) 81 mg QAM PO 11/09/16 09:00 12/09/16 08:59 11/10/16 08:07 81 MG Carisoprodol (Soma Tab) 350 mg TID PRN PO 11/09/16 05:45 12/09/16 05:44 11/10/16 21:06 350 MG Clonazepam (Klonopin Tab) 1 mg HS PO 11/09/16 21:00 12/09/16 20:59 11/10/16 20:52 1 MG Fluoxetine HCl (Prozac Cap) 80 mg DAILY PO 11/09/16 09:00 12/09/16 08:59 11/10/16 08:08 80 MG Acetaminophen/ Hydrocodone Bitart (Viola 5/325 Tab) 1 tab Q8 PRN PO 11/09/16 05:45 11/23/16 05:44 11/10/16 15:32 1 TAB Mirtazapine (Remeron Tab) 15 mg HS PO 11/09/16 21:00 12/09/16 20:59 11/10/16 20:37 15 MG Propranolol HCl (Inderal LA Cap) 80 mg BID PO 11/09/16 09:00 12/09/16 08:59 11/10/16 20:38 80 MG Ropinirole HCl (Requip Tab) 3 mg HS PO 11/09/16 21:00 12/09/16 20:59 11/10/16 20:38 3 MG Clonazepam (Klonopin Tab) 0.5 mg DAILY PO 11/09/16 09:00 12/09/16 08:59 11/10/16 08:07 0.5 MG Miscellaneous (Iv Fluids Completed) 1 ea PRN PRN N/A 11/09/16 06:00 11/09/17 05:59 Simvastatin (Zocor Tab) 20 mg PM PO 11/09/16 21:00 12/09/16 20:59 11/10/16 20:38 20 MG Ioversol (Optiray 320) 111 ml UD PRN IV 11/09/16 13:30 11/13/16 13:29 Ondansetron HCl (Zofran Inj) 4 mg Q6H PRN IV 11/09/16 15:30 12/09/16 15:29 11/09/16 15:41 4 MG Clindamycin HCl (Cleocin Cap) 300 mg TID PO 11/10/16 17:00 11/20/16 16:59 11/10/16 17:02 300 MG Lidocaine (Lidoderm Patch 5%) 1 patch DAILY@0900 TD 11/11/16 09:00 12/11/16 08:59 Miscellaneous (Remove Lidoderm Patch) 1 ea DAILY@21 N/A 11/10/16 21:00 12/10/16 20:59 11/10/16 20:36 1 EA
[2016-11-11] VITALS (10 sets, daily range): BP systolic 90–111; BP diastolic 57–72; PULSE 56–86; TEMP 36.4–36.9; O2SAT 92–95
[2016-11-11] MEDS: CLINDAMYCIN HCL 150 MG CAP PO SCH ×4 (00:17→21:00)
[2016-11-11] MEDS: HYDROCODONE/ACETAMOPHEN 5/325MG TAB PO PRN ×2 (00:18→08:26)
--- NOTE | 2016-11-11 07:02 | DIAGNOSTIC IMAGING REPORT ---
LUMBAR SPINE W/O CONTRAST CLINICAL HISTORY: 56 years-old Female presenting with r/o compression, low back pain radiating into the buttocks and left leg, numbness in both feet, symptoms for 4 to 5 months, no known degenerative disc disease in the neck, no injury or surgery, no history of cancer. TECHNIQUE: Multisequence, multiplanar MR imaging of the lumbar spine was performed without the use of intravenous contrast. IV contrast: None. COMPARISON: Correlation made to CT of the abdomen and pelvis from 2008. FINDINGS: Localizer images: Unremarkable. Well-defined T1 hyperintense, T2 hyperintense lesions in the T12 and L1 vertebral bodies consistent with benign hemangiomas. Vertebral bodies otherwise maintain normal height, alignment, and bone marrow signal intensity. Intervertebral discs largely preserved with only minimal desiccation in the mid lumbar spine. Facet arthropathy noted at L3-4 and L4-5 along with the ligamentum flavum thickening. This does not result in significant neural foraminal or spinal canal stenosis. No edema in the paraspinal soft tissues. Spinal cord ends in good position at the inferior endplate of T12. Cauda equina normal in appearance. IMPRESSION: Mild degenerative change with facet arthropathy at L3-4 and L4-5 without significant neural foraminal or spinal canal stenosis. Electronically signed by: Rm Campo M.D. 11/11/2016 7:00 AM Dictated Date/Time: 11/11/2016 6:55 AM
--- NOTE | 2016-11-11 07:13 | DIAGNOSTIC IMAGING REPORT ---
BREAST LIMITED UNILATERAL CLINICAL HISTORY: 56 years-old Female presenting with left breast pain, clinical concern for mastitis with abscess at 10:00. TECHNIQUE: Real-time grayscale ultrasound imaging of the left breast at the 10:00 position was performed. COMPARISON: None. FINDINGS: No significant abnormality. No fluid collection. Normal hypoechoic mammary fat. No dilatation of the ducts. No convincing evidence of breast mass. IMPRESSION: No abnormality of the left breast at the site of clinical interest. If there is continuing clinical concern, dedicated mammography and breast examination should be obtained. Electronically signed by: Rm Campo M.D. 11/11/2016 7:12 AM Dictated Date/Time: 11/11/2016 7:10 AM
[2016-11-11] MEDS: ASPIRIN 81 MG ECTAB PO SCH (08:20)
[2016-11-11] MEDS: CLONAZEPAM 0.5 MG TAB PO SCH (08:20)
[2016-11-11] MEDS: FLUOXETINE HCL 20 MG CAP PO SCH (08:20)
[2016-11-11] MEDS: PROPRANOLOL HCL 80 MG LA CAP PO SCH ×3 (08:20→21:01)
[2016-11-11] MEDS: LIDODERM (LIDOCAINE) PATCH 5% TD SCH (08:21)
[2016-11-11] MEDS ORDERED: MECLIZINE HCL 12.5 MG TAB PO PRN (08:30)
[2016-11-11] MEDS ORDERED: DOBUTamine HCL 12.5 MG/ML 20 ML VIAL ONE (09:26)
[2016-11-11] MEDS ORDERED: ATROPINE SULFATE 0.1 MG/ML 5ML SYR ONE ×2 (09:26→10:27)
[2016-11-11] MEDS ORDERED: METOPROLOL TARTRATE 1 MG/ML VIAL ONE (09:26)
--- NOTE | 2016-11-11 10:38 | Cardiology Follow-Up ---
Subjective Subjective Date of Service: Nov 11, 2016. Pt evaluation today including: conversation w/ patient, physical exam, chart review, lab review, review of studies, review of inpatient medication list Additional Details: Pt seen and examined, severe headache with dobutamine stress but no reproduction of chest pain. No complaints overnight. Tele reviewed: sinus rhythm without arrhythmia or significant ectopy. Problem List Medical Problems: (1) Diaphoresis Status: Acute (2) Left upper arm pain Status: Acute (3) Nausea Status: Acute (4) Neck pain Status: Acute Review of Systems Respiratory: No see HPI, No cough, No sputum, No wheezing, No shortness of breath, No dyspnea on exertion, No dyspnea at rest, No hemoptysis, No problem reported Cardiac: No see HPI, No chest pain, No orthopnea, No PND, No edema, No claudication, No palpitations, No problem reported Musculoskeletal: + muscle pain Objective Vital Signs Last Vital Signs Documentation Date Time Temp Pulse Resp B/P (MAP) Pulse Ox O2 Delivery O2 Flow Rate FiO2 11/11/16 08:00 94 Room Air 11/11/16 07:49 61 111/72 (85) 11/11/16 07:37 36.7 16 11/09/16 06:29 2.0 Physical Exam: General Appearance: WD/WN, no apparent distress Eyes: bilateral eyes normal inspection, bilateral eyes PERRL, bilateral eyes EOMI ENT: normal ENT inspection, hearing grossly normal, pharynx normal Neck: supple, no adenopathy, thyroid normal, no JVD, no carotid bruits, trachea midline Respiratory/Chest: chest non-tender, lungs clear, normal breath sounds, no respiratory distress, no accessory muscle use Cardiovascular: regular rate, rhythm, no edema, no JVD, no murmur, + gallop/S4 Abdomen: normal bowel sounds, non tender, soft, no organomegaly, no pulsatile mass Extremities: normal inspection, no pedal edema, no calf tenderness 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 chest pain noncardiac stress echo nonischemic 2. cervical radiculopathy on Soma may benefit from pain management eval as outpatient ok to d/c to home from cardiac standpoint no cardiac f/u necessary
[2016-11-11] MEDS: CARISOPRODOL 350 MG TAB PO PRN ×2 (11:43→20:59)
[2016-11-11] MEDS: ACETAMINOPHEN 325 MG TAB PO PRN (11:43)
--- NOTE | 2016-11-11 12:02 | DOBUTAMINE ECHO ---
*NOTICE TO RECEIVING DEMOCRAT AGENCY This information is strictly Confidential and protected under [place] law. [place] law prohibits you from making any further disclosure of this information unless further disclosure is expressly permitted by the written consent of the person to whom it pertains or is authorized by law. A general authorization for the release of medical or other information is not sufficient for this purpose. Hospital accepts no responsibility if the information is made available to any other person, INCLUDING THE PATIENT. Interpretation Summary * Name: AMARIS ROSADO Study Date: 11/11/2016 09:29 AM BP: 114/54 mmHg * Patient Location: [facility]\S\N286\S\1 HR: 61 * : 1960 (M/d/yyyy) Gender: Female Height: 62 in * Age: 56 yrs Ethnicity: [place] Weight: 154 lb * Ordering Physician: Anshul Rodriguez * Referring Physician: Self, Referred * Performed By: Tristen Etienne RCS * * Reason For Study: Chest Pain * BSA: 1.7 m2 * -- Conclusions -- * Nonischemic dobutamine stress echocardiogram. * Ventricular bigeminy with increased rates, no other arrhythmias. * Severe headache with dobutamine infusion but no recurrence of chest pain. Resolved with metoprolol 10mg. * Hypertenisve BP response to infusion. Procedure Details * DOBUTAMINE ECHO, CPT#42353 Stress Parameters * The stress portion of this study was personally supervised by the undersigned interpreting physician. * Rest heart rate was '61' BPM. * Rest blood pressure was '114/54' * Maximum heart rate achieved was 150 bpm. * Maximum heart rate was 90 % of maximum age-predicted heart rate. * Maximum blood pressure was '207/109' * Maximum Dobutamine infusion rate was '40' mcg/kg/min. * A total of 1.5 mg of intravenous Atropine was used to supplement Dobutamine for heart rate response. * Dobutamine infusion was terminated due to achieving target heart rate * A total of 10 mg of IV Metoprolol was administered to reverse Dobutamine-induced tachycardia.
--- NOTE | 2016-11-11 13:55 | Progress Note ---
Medicine Progress Note Date & Time of Visit: Nov 11, 2016 at 13:49. Subjective patient seen resting in bed, comfortable was having headache after stress test, now resolved no chest pain back pain about the same associated with bilateral feet numbness left breast pain is improving no other symptoms Objective Last 8 Hrs Date Time Temp Pulse Resp B/P (MAP) Pulse Ox O2 Delivery O2 Flow Rate FiO2 11/11/16 12:08 36.5 86 16 93/62 (72) 92 Room Air 11/11/16 12:00 94 Room Air 11/11/16 08:00 94 Room Air 11/11/16 07:49 61 111/72 (85) 11/11/16 07:37 36.7 56 16 101/64 (76) 94 Room Air Physical Exam: General- oriented x 3 not in distress, speaks in sentences with no effort Eyes- anicteric Neck- no JVD Lungs- clear breath sounds bilaterally, no rales/wheezes Heart- regular rhythm; no murmur, normal rate Abdomen- normal bowel sounds, soft, nontender Extremities- no pretibial edema, no calf tenderness Back- no tenderness, (+) straight leg test left (done yesterday) Neuro- alert, oriented x 3; sensation 75% on lower ext, no other gross focal deficits Skin- warm & dry Assessment & Plan SHOULDER PAIN / CHEST PAIN / NAUSEA / SOB / PALPITATIONS - risk factors: heart attack - mother and brother age 50s; Dyslipidemia - cardiac markers negative ekg non specific t wave changes in inferior lead - stress test: negative on Aspirin, Statin LOW BACK PAIN - associated with bilateral feet numbness - Lumbar spine MRI: Mild degenerative change with facet arthropathy at L3-4 and L4-5 without significant neural foraminal or spinal canal stenosis. - PRN [place], Soma Lidoderm patch warm compress patient would like to discontinue Lyrica as it gives her fatigue PT/OT - patient is very frustrated, states pain has been worsening, to the point that she cannot work properly will consult Pain Management LEFT BREAST PAIN - possible Mastitis - check US: unrevealing - Day2 Clindamycin - improving DYSLIPIDEMIA - LDL 223 Chol 338 TG 263 - started Simvastatin 20mg ANXIETY / DEPRESSION stable overall continue usual meds- Prozac, Clonipin, Remeron DVT PROPHYLAXIS ambulate SCDs RESUSCITATION STATUS Full resuscitation.. DISPOSITION anticipate d/c home when medically stable ff up with Dr. Ma Current Inpatient Medications: Current Inpatient Medications Medications (Trade) Dose Ordered Sig/Elsy Route Start Time Stop Time Status Last Admin Dose Admin Acetaminophen (Tylenol Tab) 650 mg Q4H PRN PO 11/09/16 05:00 12/09/16 04:59 11/11/16 11:43 650 MG Nitroglycerin (Nitrostat Tab) 0.4 mg UD PRN SL 11/09/16 05:00 12/09/16 04:59 Aspirin (Ecotrin Tab) 81 mg QAM PO 11/09/16 09:00 12/09/16 08:59 11/11/16 08:20 81 MG Carisoprodol (Soma Tab) 350 mg TID PRN PO 11/09/16 05:45 12/09/16 05:44 11/11/16 11:43 350 MG Clonazepam (Klonopin Tab) 1 mg HS PO 11/09/16 21:00 12/09/16 20:59 11/10/16 20:52 1 MG Fluoxetine HCl (Prozac Cap) 80 mg DAILY PO 11/09/16 09:00 12/09/16 08:59 11/11/16 08:20 80 MG Acetaminophen/ Hydrocodone Bitart ([place] 5/325 Tab) 1 tab Q8 PRN PO 11/09/16 05:45 11/23/16 05:44 11/11/16 08:26 1 TAB Mirtazapine (Remeron Tab) 15 mg HS PO 11/09/16 21:00 12/09/16 20:59 11/10/16 20:37 15 MG Propranolol HCl (Inderal LA Cap) 80 mg BID PO 11/09/16 09:00 12/09/16 08:59 11/11/16 08:20 80 MG Ropinirole HCl (Requip Tab) 3 mg HS PO 11/09/16 21:00 12/09/16 20:59 11/10/16 20:38 3 MG Clonazepam (Klonopin Tab) 0.5 mg DAILY PO 11/09/16 09:00 12/09/16 08:59 11/11/16 08:20 0.5 MG Miscellaneous (Iv Fluids Completed) 1 ea PRN PRN N/A 11/09/16 06:00 11/09/17 05:59 Simvastatin (Zocor Tab) 20 mg PM PO 11/09/16 21:00 12/09/16 20:59 11/10/16 20:38 20 MG Ioversol (Optiray 320) 111 ml UD PRN IV 11/09/16 13:30 11/13/16 13:29 Ondansetron HCl (Zofran Inj) 4 mg Q6H PRN IV 11/09/16 15:30 12/09/16 15:29 11/09/16 15:41 4 MG Clindamycin HCl (Cleocin Cap) 300 mg TID PO 11/10/16 17:00 11/20/16 16:59 11/11/16 08:21 300 MG Lidocaine (Lidoderm Patch 5%) 1 patch DAILY@0900 TD 11/11/16 09:00 12/11/16 08:59 11/11/16 08:21 1 PATCH Miscellaneous (Remove Lidoderm Patch) 1 ea DAILY@21 N/A 11/10/16 21:00 12/10/16 20:59 11/10/16 20:36 1 EA Meclizine HCl (Antivert Tab) 12.5 mg Q6H PRN PO 11/11/16 08:30 12/11/16 08:29 11/11/16 09:00 12.5 MG
[2016-11-11] MEDS ORDERED: CETIRIZINE HCL 10 MG TAB PO ONE (18:00)
[2016-11-11] MEDS: CLONAZEPAM 1 MG TAB PO SCH (20:59)
[2016-11-11] MEDS: MIRTAZAPINE TAB 15 MG TAB PO SCH (21:00)
[2016-11-11] MEDS: SIMVASTATIN 20 MG TAB PO SCH (21:05)
[2016-11-11] MEDS: ROPINIROLE HCL 1 MG TAB PO SCH (21:05)
[2016-11-12] VITALS (7 sets, daily range): BP systolic 94–102; BP diastolic 62–66; PULSE 58–63; TEMP 36.5–36.9; O2SAT 93–97
[2016-11-12] MEDS: CLONAZEPAM 0.5 MG TAB PO SCH (07:37)
[2016-11-12] MEDS: ASPIRIN 81 MG ECTAB PO SCH (07:37)
[2016-11-12] MEDS: PROPRANOLOL HCL 80 MG LA CAP PO SCH (07:37)
[2016-11-12] MEDS: LIDODERM (LIDOCAINE) PATCH 5% TD SCH (07:37)
[2016-11-12] MEDS: FLUOXETINE HCL 20 MG CAP PO SCH (07:38)
[2016-11-12] MEDS: CLINDAMYCIN HCL 150 MG CAP PO SCH ×2 (07:38→13:28)
[2016-11-12] MEDS: HYDROCODONE/ACETAMOPHEN 5/325MG TAB PO PRN (07:43)
[2016-11-12] MEDS ORDERED: CETIRIZINE HCL 10 MG TAB PO SCH (09:00)
--- NOTE | 2016-11-12 12:12 | Pain Management Consultation ---
Pain Management Consultation Date of Consultation Nov 12, 2016. Reason for Consultation Assistance with pain management. Pain Location 1 - Axial pain 2 - Radicular pain History 56 year old female admitted to [facility] with c/o chest pain. Cardiac evaluation revealed pain unrelated to cardiac origin. She attributes it to use of pregabalin which she was recently started on for low back pain and left lower leg radicular pain. She reports that she has had chronic radicular pain and left lower extremity for "many years" with increasing intensity of the last several months. Pain is located in the axial left low back and radiates into the posterior aspect of the leg all the way to the ankle and is associated with numbness in both feet. She rates the back pain as 5/10 and the leg pain as 8/ 10 when severe. Pain occurs spontaneously and when she is in a standing position for more than 10 minutes. Pain occurs with activities required for daily living. Pain has been present for chronic duration and has been treated with chronic use of hydrocodone and Soma. Despite the use of these agents, she reports minimal efficacy. She also has undergone manipulation of the spine previously. She denies any bowel or bladder incontinence, saddle anesthesia, lower extremity motor symptoms with the exception of intermittent paresthesias in both feet. Past Medical/Surgical History (1) Anxiety (2) Mitral valve prolapse (3) Depression (4) Nystagmus (5) Legal blindness (6) Allergic rhinitis (7) Status post tubal ligation (8) Status post cataract extraction Family History Cancer of gallbladder BROTHER Diabetes mellitus FATHER Myocardial infarction MOTHER Social / Work History Alcohol Use: occasionally Marital Status: Housing Status: lives with family Occupation: employed Allergies Coded Allergies: Penicillins (Unverified Allergy, Unknown, 11/09/16) Medications Current Inpatient Medications Medications (Trade) Dose Ordered Sig/Elsy Route Start Time Stop Time Status Last Admin Dose Admin Acetaminophen (Tylenol Tab) 650 mg Q4H PRN PO 11/09/16 05:00 12/09/16 04:59 11/11/16 11:43 650 MG Nitroglycerin (Nitrostat Tab) 0.4 mg UD PRN SL 11/09/16 05:00 12/09/16 04:59 Aspirin (Ecotrin Tab) 81 mg QAM PO 11/09/16 09:00 12/09/16 08:59 11/12/16 07:37 81 MG Carisoprodol (Soma Tab) 350 mg TID PRN PO 11/09/16 05:45 12/09/16 05:44 11/11/16 20:59 350 MG Clonazepam (Klonopin Tab) 1 mg HS PO 11/09/16 21:00 12/09/16 20:59 11/11/16 20:59 1 MG Fluoxetine HCl (Prozac Cap) 80 mg DAILY PO 11/09/16 09:00 12/09/16 08:59 11/12/16 07:38 80 MG Acetaminophen/ Hydrocodone Bitart ([place] 5/325 Tab) 1 tab Q8 PRN PO 11/09/16 05:45 11/23/16 05:44 11/12/16 07:43 1 TAB Mirtazapine (Remeron Tab) 15 mg HS PO 11/09/16 21:00 12/09/16 20:59 11/11/16 21:00 15 MG Propranolol HCl (Inderal LA Cap) 80 mg BID PO 11/09/16 09:00 12/09/16 08:59 11/12/16 07:37 80 MG Ropinirole HCl (Requip Tab) 3 mg HS PO 11/09/16 21:00 12/09/16 20:59 11/11/16 21:05 3 MG Clonazepam (Klonopin Tab) 0.5 mg DAILY PO 11/09/16 09:00 12/09/16 08:59 11/12/16 07:37 0.5 MG Miscellaneous (Iv Fluids Completed) 1 ea PRN PRN N/A 11/09/16 06:00 11/09/17 05:59 Simvastatin (Zocor Tab) 20 mg PM PO 11/09/16 21:00 12/09/16 20:59 11/11/16 21:05 20 MG Ioversol (Optiray 320) 111 ml UD PRN IV 11/09/16 13:30 11/13/16 13:29 Ondansetron HCl (Zofran Inj) 4 mg Q6H PRN IV 11/09/16 15:30 12/09/16 15:29 11/09/16 15:41 4 MG Clindamycin HCl (Cleocin Cap) 300 mg TID PO 11/10/16 17:00 11/20/16 16:59 11/12/16 07:38 300 MG Lidocaine (Lidoderm Patch 5%) 1 patch DAILY@0900 TD 11/11/16 09:00 12/11/16 08:59 11/12/16 07:37 1 PATCH Miscellaneous (Remove Lidoderm Patch) 1 ea DAILY@21 N/A 11/10/16 21:00 12/10/16 20:59 11/11/16 20:47 1 EA Meclizine HCl (Antivert Tab) 12.5 mg Q6H PRN PO 11/11/16 08:30 12/11/16 08:29 11/11/16 09:00 12.5 MG Cetirizine HCl (zyrTEC TAB) 10 mg QAM PO 11/12/16 09:00 12/12/16 08:59 11/12/16 07:37 10 MG Review of Systems Denies any recent history of fever, night sweats, unexplained weight loss, or constitutional symptoms. Otherwise, 8 point review of system has been reported to be negative. Physical Exam Height & Weight: Height 5 feet, 2.00 inches. Weight 70.200 (Kilograms) 154 (Pounds) Last Vital Signs Documentation Date Time Temp Pulse Resp B/P (MAP) Pulse Ox O2 Delivery O2 Flow Rate FiO2 11/12/16 07:55 97 Room Air 11/12/16 07:10 36.9 63 16 101/65 (77) 11/09/16 06:29 2.0 Exam: Ms. Lemons is alert and oriented. Mood and affect are appropriate. Short- term and long-term memory is intact. Sensorium is clear. Inspection of the lumbar spine demonstrates normal curvatures with decreased range of motion in all planes due to deconditioning. No lesions are noted in the lumbar spine region. Provocative testing of the facet joints is negative. Provocative testing of the sacroiliac joints provocative tests is negative. Normal myofascial tenderness or trigger points identifiable in the paraspinous musculature. Neurologically, straight leg raising is marginally positive on the left side at 45. Straight raising is negative past 90 and no changes noted Achilles stretch on the right side. Sensation and motor strength in the lower extremity are symmetrical without deficit. No pathologic reflexes are noted in the lower extremities. Laboratory Laboratory Results (Last CBC): 11/09/16 04:05 Red Blood Count 4.43, Mean Corpuscular Volume 93.2, Mean Corpuscular Hemoglobin 30.7, Mean Corpuscular Hemoglobin Concent 32.9, Mean Platelet Volume 10.3, Neutrophils (%) (Auto) 51.8, Lymphocytes (%) (Auto) 37.4, Monocytes (%) (Auto) 9.0, Eosinophils (%) (Auto) 1.2, Basophils (%) (Auto) 0.1, Neutrophils # (Auto) 7.44 H, Lymphocytes # (Auto) 5.38 H, Monocytes # (Auto) 1.30 H, Eosinophils # ( Auto) 0.17, Basophils # (Auto) 0.02 Imaging MRI: non enhanced, images reviewed MRI Findings LUMBAR SPINE W/O CONTRAST CLINICAL HISTORY: 56 years-old Female presenting with r/o compression, low back pain radiating into the buttocks and left leg, numbness in both feet, symptoms for 4 to 5 months, no known degenerative disc disease in the neck, no injury or surgery, no history of cancer. TECHNIQUE: Multisequence, multiplanar MR imaging of the lumbar spine was performed without the use of intravenous contrast. IV contrast: None. COMPARISON: Correlation made to CT of the abdomen and pelvis from 2008. FINDINGS: Localizer images: Unremarkable. Well-defined T1 hyperintense, T2 hyperintense lesions in the T12 and L1 vertebral bodies consistent with benign hemangiomas. Vertebral bodies otherwise maintain normal height, alignment, and bone marrow signal intensity. Intervertebral discs largely preserved with only minimal desiccation in the mid lumbar spine. Facet arthropathy noted at L3-4 and L4-5 along with the ligamentum flavum thickening. This does not result in significant neural foraminal or spinal canal stenosis. No edema in the paraspinal soft tissues. Spinal cord ends in good position at the inferior endplate of T12. Cauda equina normal in appearance. IMPRESSION: Mild degenerative change with facet arthropathy at L3-4 and L4-5 without significant neural foraminal or spinal canal stenosis. Electronically signed by: Rm Campo M.D. 11/11/2016 7:00 AM Dictated Date/Time: 11/11/2016 6:55 AM [place] Drug Monitoring Program Search Results: patient reviewed within database Drug Monitoring Findings: Hydrocodone, anxiolytics and insomnia meds by consistent 4 providers Opioid Risk Assessment Risk assessment performed, minimal risk identified Assessment 1. Lumbar radiculitis. 2. Lumbar spondylosis and facet arthropathy. 3. Degenerative disc disease. 4. Anxiety/depression. Recommendations 1. Recommend discontinue routine use of opiate and Soma as it is not providing significant efficacy and routine use of opiates and muscle relaxants for axial low back pain and radicular are not recommended by current CDC guidelines as a first line therapy. 2. Recommend epidural steroid injection, initiation of physical therapy or chiropractic therapy and conditioning as treatment alternatives. 3. If patient is interested in pursuing these treatment alternatives, she can be referred to appropriate pain management clinic as an outpatient by the primary care provider.
--- NOTE | 2016-11-12 13:31 | Progress Note ---
Medicine Progress Note Date & Time of Visit: Nov 12, 2016 at 13:22. Subjective patient seen resting in bed, comfortable no chest pain, dyspnea, palpitations, headache back pain improved, no problems walking left breast pain continues to improve, minimal denies other symptoms states she is ready and would like to be discharged today Objective Last 8 Hrs Date Time Temp Pulse Resp B/P (MAP) Pulse Ox O2 Delivery O2 Flow Rate FiO2 11/12/16 11:25 36.8 63 16 94/63 (73) 93 Room Air 11/12/16 07:55 97 Room Air 11/12/16 07:10 36.9 63 16 101/65 (77) 97 Room Air Physical Exam: General- oriented x 3 not in distress, speaks in sentences with no effort Eyes- anicteric Neck- no JVD Lungs- clear BS bilaterally, no rales/wheezes Heart- regular rhythm; no murmur, normal rate Abdomen- normal bowel sounds, soft, nontender Extremities- no pretibial edema, no calf tenderness Back- no tenderness Neuro- alert, oriented x 3; sensation 75% on lower ext, no other gross focal deficits Skin- warm & dry Laboratory Results: Last 24 Hours Test 11/12/16 06:07 Vitamin B12 Level 300 pg/mL Assessment & Plan SHOULDER PAIN / CHEST PAIN / NAUSEA / SOB / PALPITATIONS ACUTE CORONARY SYNDROME RULED OUT - risk factors: heart attack - mother and brother age 50s; Dyslipidemia - cardiac markers negative ekg non specific t wave changes in inferior lead - Dobutamine stress test: negative LOW BACK PAIN - associated with bilateral feet numbness - Lumbar spine MRI: Mild degenerative change with facet arthropathy at L3-4 and L4-5 without significant neural foraminal or spinal canal stenosis. - PRN [place], Soma Lidoderm patch warm compress patient would like to discontinue Lyrica as it gives her fatigue PT/OT - evaluated by Pain management Service Dr. Davis recommend steroid injection as outpatient discontinue Opiates and Soma Physical Therapy LEFT BREAST PAIN - possible Mastitis - check US: unrevealing - given Clindamycin x 3 days - improving - continue Clindamycin x 2 more day to complete 5 days DYSLIPIDEMIA - LDL 223 Chol 338 TG 263 - started Simvastatin 20mg - ff up lipid profile ANXIETY / DEPRESSION stable overall continue usual meds- Prozac, Clonipin, Remeron DVT PROPHYLAXIS ambulate SCDs RESUSCITATION STATUS Full resuscitation.. DISPOSITION d/c home ff up with PCP in 3-5 days Pain Management Clinic in 1 week Current Inpatient Medications: Current Inpatient Medications Medications (Trade) Dose Ordered Sig/Elsy Route Start Time Stop Time Status Last Admin Dose Admin Acetaminophen (Tylenol Tab) 650 mg Q4H PRN PO 11/09/16 05:00 12/09/16 04:59 11/11/16 11:43 650 MG Nitroglycerin (Nitrostat Tab) 0.4 mg UD PRN SL 11/09/16 05:00 12/09/16 04:59 Aspirin (Ecotrin Tab) 81 mg QAM PO 11/09/16 09:00 12/09/16 08:59 11/12/16 07:37 81 MG Carisoprodol (Soma Tab) 350 mg TID PRN PO 11/09/16 05:45 12/09/16 05:44 11/11/16 20:59 350 MG Clonazepam (Klonopin Tab) 1 mg HS PO 11/09/16 21:00 12/09/16 20:59 11/11/16 20:59 1 MG Fluoxetine HCl (Prozac Cap) 80 mg DAILY PO 11/09/16 09:00 12/09/16 08:59 11/12/16 07:38 80 MG Acetaminophen/ Hydrocodone Bitart ([place] 5/325 Tab) 1 tab Q8 PRN PO 11/09/16 05:45 11/23/16 05:44 11/12/16 07:43 1 TAB Mirtazapine (Remeron Tab) 15 mg HS PO 11/09/16 21:00 12/09/16 20:59 11/11/16 21:00 15 MG Propranolol HCl (Inderal LA Cap) 80 mg BID PO 11/09/16 09:00 12/09/16 08:59 11/12/16 07:37 80 MG Ropinirole HCl (Requip Tab) 3 mg HS PO 11/09/16 21:00 12/09/16 20:59 11/11/16 21:05 3 MG Clonazepam (Klonopin Tab) 0.5 mg DAILY PO 11/09/16 09:00 12/09/16 08:59 11/12/16 07:37 0.5 MG Miscellaneous (Iv Fluids Completed) 1 ea PRN PRN N/A 11/09/16 06:00 11/09/17 05:59 Simvastatin (Zocor Tab) 20 mg PM PO 11/09/16 21:00 12/09/16 20:59 11/11/16 21:05 20 MG Ioversol (Optiray 320) 111 ml UD PRN IV 11/09/16 13:30 11/13/16 13:29 Ondansetron HCl (Zofran Inj) 4 mg Q6H PRN IV 11/09/16 15:30 12/09/16 15:29 11/09/16 15:41 4 MG Clindamycin HCl (Cleocin Cap) 300 mg TID PO 11/10/16 17:00 11/20/16 16:59 11/12/16 07:38 300 MG Lidocaine (Lidoderm Patch 5%) 1 patch DAILY@0900 TD 11/11/16 09:00 12/11/16 08:59 11/12/16 07:37 1 PATCH Miscellaneous (Remove Lidoderm Patch) 1 ea DAILY@21 N/A 11/10/16 21:00 12/10/16 20:59 11/11/16 20:47 1 EA Meclizine HCl (Antivert Tab) 12.5 mg Q6H PRN PO 11/11/16 08:30 12/11/16 08:29 11/11/16 09:00 12.5 MG Cetirizine HCl (zyrTEC TAB) 10 mg QAM PO 11/12/16 09:00 12/12/16 08:59 11/12/16 07:37 10 MG
[2016-11-12] MEDS ORDERED: CLC150 PO (13:35)
[2016-11-12] MEDS ORDERED: ZCR20 PO (13:35)
--- NOTE | 2016-11-12 13:44 | Discharge Instructions ---
Discharge Instructions Date of Service Nov 12, 2016. Admission Reason for Admission: Chest Pains Discharge Discharge Diagnosis / Problem: CHEST PAIN, ACUTE CORONARY SYNDROME RULED OUT Discharge Goals Goal(s): Diagnostic testing, Therapeutic intervention Activity Recommendations Activity Limitations: as noted below (NO HEAVY EXERTION UNTIL RE-EVALUATED BY PRIMARY CARE PHYSICIAN) Lifting Limitations: until after follow-up appointment Exercise/Sports Limitations: until after follow-up appointment . Instructions / Follow-Up Instructions / Follow-Up PLEASE REVIEW YOUR NEW MEDICATION LIST AND FOLLOW INSTRUCTIONS CAREFULLY. CALL PRIMARY CARE PHYSICIAN OR RETURN TO ER IMMEDIATELY IF WITH RECURRENCE OF SYMPTOMS, INCREASING BREAST PAIN, FEVER/CHILLS. FOLLOW UP WITH PRIMARY CARE PHYSICIAN- DR. ZULY POWELL ON MONDAY NOVEMBER 14, 2016 AT 2:00PM. FOLLOW UP WITH PAIN MANAGEMENT CLINIC - DR. BERYL BENITEZ IN 1 WEEK. Current Hospital Diet Patient's current hospital diet: AHA Diet (Heart Healthy) Discharge Diet Recommended Diet: AHA Diet (Heart Healthy) Procedures Procedures Performed: DOBUTAMINE STRESS TEST Pending Studies Studies pending at discharge: no Laboratory Results Lipid Panel Test 11/09/16 04:05 Range/Units Triglycerides Level 263 H 0-150 mg/dl Cholesterol Level 338 H 0-200 mg/dl HDL Cholesterol 62 mg/dl Cholesterol/HDL Ratio 5.5 LDL Cholesterol, Calculated 223 mg/dl Medical Emergencies . Who to Call and When: Medical Emergencies: If at any time you feel your situation is an emergency, please call 911 immediately. . Non-Emergent Contact Non-Emergency issues call your: Primary Care Provider Call Non-Emergent contact if: you have a fever, your pain is not controlled, your pain is worsening, you have any medication questions . . "Provider Documentation" section prepared by Ishan Goldberg. . VTE Core Measure Inpt VTE Proph given/why not?: Treatment not indicated [place] Drug Monitoring Program Search Results: patient reviewed within database, no issues identified
--- NOTE | 2016-11-12 13:53 | Discharge Summary ---
Discharge Summary Date of Service Nov 12, 2016. Discharge Summary Admission Date: Nov 10, 2016 at 16:35 Discharge Date: Nov 12, 2016 Discharge Disposition: Home Principal Diagnosis: SHOULDER PAIN / CHEST PAIN / NAUSEA / SOB / PALPITATIONS ACUTE CORONARY SYNDROME RULED OUT Secondary Diagnoses/Problems: Please refer to hospital course below. Procedures: DOBUTAMINE STRESS ECHO * Nonischemic dobutamine stress echocardiogram. * Ventricular bigeminy with increased rates, no other arrhythmias. * Severe headache with dobutamine infusion but no recurrence of chest pain. Resolved with metoprolol 10mg. * Hypertenisve BP response to infusion. LUMBAR SPINE W/O CONTRAST CLINICAL HISTORY: 56 years-old Female presenting with r/o compression, low back pain radiating into the buttocks and left leg, numbness in both feet, symptoms for 4 to 5 months, no known degenerative disc disease in the neck, no injury or surgery, no history of cancer. TECHNIQUE: Multisequence, multiplanar MR imaging of the lumbar spine was performed without the use of intravenous contrast. IV contrast: None. COMPARISON: Correlation made to CT of the abdomen and pelvis from 2008. FINDINGS: Localizer images: Unremarkable. Well-defined T1 hyperintense, T2 hyperintense lesions in the T12 and L1 vertebral bodies consistent with benign hemangiomas. Vertebral bodies otherwise maintain normal height, alignment, and bone marrow signal intensity. Intervertebral discs largely preserved with only minimal desiccation in the mid lumbar spine. Facet arthropathy noted at L3-4 and L4-5 along with the ligamentum flavum thickening. This does not result in significant neural foraminal or spinal canal stenosis. No edema in the paraspinal soft tissues. Spinal cord ends in good position at the inferior endplate of T12. Cauda equina normal in appearance. IMPRESSION: Mild degenerative change with facet arthropathy at L3-4 and L4-5 without significant neural foraminal or spinal canal stenosis. CT ANGIOGRAPHY OF THE CHEST, PULMONARY EMBOLUS PROTOCOL CLINICAL HISTORY: Chest pain. Elevated d-dimer. COMPARISON STUDY: Chest radiograph December 12, 2012 and November 09, 2016. TECHNIQUE: Following IV administration of 93 mL of Optiray-320, helical axial images of the chest were obtained utilizing the pulmonary embolus protocol. Maximal intensity projections and sagittal and coronal reformats were viewed on an independent 3D workstation. IV contrast was administered without complication. A dose lowering technique was utilized adhering to the principles of ALARA. CT DOSE: 266.06 mGy.cm FINDINGS: No pulmonary emboli are identified. There is no evidence of thoracic aortic dissection. The size of the heart is normal. There is no pericardial effusion. Central airways are patent. There is no consolidation to suggest pneumonia. No pneumothorax or pleural effusion is present. There are old right-sided rib fractures. Bony thorax and upper abdomen are unremarkable. There are no enlarged thoracic lymph nodes. IMPRESSION: 1. No pulmonary emboli identified. 2. No acute intrathoracic findings. BILATERAL LOWER EXTREMITY VENOUS DOPPLER CLINICAL HISTORY: Elevated d-dimer. Chest pain. COMPARISON STUDY: No previous studies for comparison. TECHNIQUE: Sonography of the deep venous system of the bilateral lower extremities was performed. Compression and augmentation were evaluated. FINDINGS: The bilateral common femoral, superficial femoral and popliteal veins were compressible. Augmentation was normal. Flow was shown within the deep calf vessels. IMPRESSION: No evidence of deep venous thrombus within the bilateral lower extremities. BREAST LIMITED UNILATERAL CLINICAL HISTORY: 56 years-old Female presenting with left breast pain, clinical concern for mastitis with abscess at 10:00. TECHNIQUE: Real-time grayscale ultrasound imaging of the left breast at the 10:00 position was performed. COMPARISON: None. FINDINGS: No significant abnormality. No fluid collection. Normal hypoechoic mammary fat. No dilatation of the ducts. No convincing evidence of breast mass. IMPRESSION: No abnormality of the left breast at the site of clinical interest. If there is continuing clinical concern, dedicated mammography and breast examination should be obtained. Consultations: CARDIOLOGY DR. LOMBARDO; PAIN MANAGEMENT DR. DAVIS Pending Studies/Follow-Up: Please refer to hospital course below. Medication Reconciliation New Medications: Clindamycin HCl (Clindamycin HCl) 150 Mg Cap 300 MG PO TID for 2 Days, #12 CAP 0 Refills Simvastatin (Simvastatin) 20 Mg Tab 20 MG PO PM for 30 Days, #30 TAB 2 Refills Continued Medications: Clonazepam (Klonopin) 1 Mg Tab 0 PO UD 1/2 pill daily + 1 pill at bed time Fluoxetine (Prozac) 40 Mg Cap 80 MG PO DAILY, CAP Lorazepam (Lorazepam) 1 Mg Tab 1 MG PO HS PRN for Sleep Mirtazapine (Remeron) 15 Mg Tab 15 MG PO HS, TAB Montelukast Sodium (Singulair) 10 Mg Tab 10 MG PO DAILY PRN for ALLERGIES Propranolol HCl (Propranolol HCl ER) 80 Mg Capcr 80 MG PO BID Ropinirole (Requip) 3 Mg Tab 3 MG PO HS, 0 Refills Discontinued Medications: Carisoprodol (Soma) 350 Mg Tab 350 MG PO TID PRN, TAB Hydrocodone/Acetaminophen 5MG/325MG ([place] 5MG/325MG) Tab 1 TABLET PO Q8 PRN for Pain, TAB PRN PAIN Pregabalin (Lyrica) 50 Mg Cap 50 MG PO BID, CAP Admission Information HPI (per Admitting provider): 56-year-old female followed by Dr. Ma for [facility]. History of mitral valve prolapse, palpitations, and other problems noted below. She had a yard sale at her home yesterday and had been very busy for the past few days preparing for it. Around 6:00 last evening she laid down on the couch. Noted left shoulder pain described as a pressure that lasted for about 10 minutes. A few hours later she noticed some dyspnea and palpitations. Around 3:00 this morning she had recurrent left shoulder pain, dyspnea, nausea. She took 2 aspirin tablets. Came to the ED for evaluation. There she developed midsternal pressure had persistent dyspnea. Ongoing intermittent left shoulder pain. Received 2 doses of nitroglycerin in the ED with improvement of the chest pressure. Mother apparently had a myocardial infarction in her 50s. Patient does not have any known personal risk actors for ischemic heart disease. . Physical Exam (per Admitting): General Appearance: WD/WN, no apparent distress Head: normocephalic, atraumatic Eyes: sclerae normal, + pertinent finding (s/p right iridectomy; horizontal nystagmus) ENT: normal ENT inspection, hearing grossly normal, pharynx normal Neck: supple, no adenopathy, thyroid normal, trachea midline Respiratory/Chest: lungs clear, normal breath sounds, no respiratory distress, no accessory muscle use Cardiovascular: regular rate, rhythm, no edema, no gallop, no JVD, no murmur , normal peripheral pulses Abdomen/GI: normal bowel sounds, non tender, soft, no organomegaly, no pulsatile mass Extremities/Musculoskelatal: no calf tenderness, no pedal edema Neurologic/Psych: no motor/sensory deficits (motor strength 5/5 bilat), alert, oriented x 3, + pertinent finding (lateral nystagmus; anxious) Skin: normal color, warm/dry, no rash Lymphatic: no adenopathy (cervical) Hospital Course SHOULDER PAIN / CHEST PAIN / NAUSEA / SOB / PALPITATIONS ACUTE CORONARY SYNDROME RULED OUT - risk factors: heart attack - mother and brother age 50s; Dyslipidemia - cardiac markers negative ekg non specific t wave changes in inferior lead - Dobutamine stress test: negative LOW BACK PAIN - associated with bilateral feet numbness - Lumbar spine MRI: Mild degenerative change with facet arthropathy at L3-4 and L4-5 without significant neural foraminal or spinal canal stenosis. - PRN [place], Soma Lidoderm patch warm compress patient would like to discontinue Lyrica as it gives her fatigue PT/OT - evaluated by Pain management Service Dr. Davis recommend steroid injection as outpatient discontinue Opiates and Soma Physical Therapy LEFT BREAST PAIN - possible Mastitis - possible nodules palpated - check US: unrevealing - given Clindamycin x 3 days - improving - continue Clindamycin x 2 more day to complete 5 days Repeat breast US or mammogram as outpatient DYSLIPIDEMIA - LDL 223 Chol 338 TG 263 - started Simvastatin 20mg - repeat lipid profile advised exercise, low fat diet ANXIETY / DEPRESSION stable overall continue usual meds- Prozac, Clonipin, Remeron DISPOSITION d/c home ff up with PCP in 3-5 days Pain Management Clinic in 1 week Total time spent on discharge = 40 minutes This includes examination of the patient, discharge planning, medication reconciliation, and communication with other providers. Discharge Instructions Discharge Instructions Date of Service Nov 12, 2016. Admission Reason for Admission: Chest Pains Discharge Discharge Diagnosis / Problem: CHEST PAIN, ACUTE CORONARY SYNDROME RULED OUT Discharge Goals Goal(s): Diagnostic testing, Therapeutic intervention Activity Recommendations Activity Limitations: as noted below (NO HEAVY EXERTION UNTIL RE-EVALUATED BY PRIMARY CARE PHYSICIAN) Lifting Limitations: until after follow-up appointment Exercise/Sports Limitations: until after follow-up appointment . Instructions / Follow-Up Instructions / Follow-Up PLEASE REVIEW YOUR NEW MEDICATION LIST AND FOLLOW INSTRUCTIONS CAREFULLY. CALL PRIMARY CARE PHYSICIAN OR RETURN TO ER IMMEDIATELY IF WITH RECURRENCE OF SYMPTOMS, INCREASING BREAST PAIN, FEVER/CHILLS. FOLLOW UP WITH PRIMARY CARE PHYSICIAN- DR. ZULY POWELL ON MONDAY NOVEMBER 14, 2016 AT 2:00PM. FOLLOW UP WITH PAIN MANAGEMENT CLINIC - DR. BERYL DAVIS IN 1 WEEK. Current Hospital Diet Patient's current hospital diet: AHA Diet (Heart Healthy) Discharge Diet Recommended Diet: AHA Diet (Heart Healthy) Procedures Procedures Performed: DOBUTAMINE STRESS TEST Pending Studies Studies pending at discharge: no Laboratory Results Lipid Panel Test 11/09/16 04:05 Range/Units Triglycerides Level 263 H 0-150 mg/dl Cholesterol Level 338 H 0-200 mg/dl HDL Cholesterol 62 mg/dl Cholesterol/HDL Ratio 5.5 LDL Cholesterol, Calculated 223 mg/dl Medical Emergencies . Who to Call and When: Medical Emergencies: If at any time you feel your situation is an emergency, please call 911 immediately. . Non-Emergent Contact Non-Emergency issues call your: Primary Care Provider Call Non-Emergent contact if: you have a fever, your pain is not controlled, your pain is worsening, you have any medication questions . . "Provider Documentation" section prepared by Ishan Goldberg. . VTE Core Measure Inpt VTE Proph given/why not?: Treatment not indicated [place] Drug Monitoring Program Search Results: patient reviewed within database, no issues identified
[2016-12-31] MEDS ORDERED: MOBIC 15 MG PO (08:32)
[2016-12-31] MEDS ORDERED: GABA-112 PO (08:32)
== END 2016-11-12 14:52 | disposition home or self-care (01) | DRG 556 ==
LOC: C.EDB 03:54 → C.MED 05:01 → ENRESERV 05:14 → OBSVTOIN 11-10 16:35
PROVIDERS: ADMIT Hospitalist; ATTEND Internal Medicine
DX: M25.512 Pain in left shoulder (principal); R07.9 Chest pain, unspecified; F41.8 Other specified anxiety disorders; H54.8 Legal blindness, as defined in USA; M47.26 Other spondylosis with radiculopathy, lumbar region; I34.1 Nonrheumatic mitral (valve) prolapse; Z79.899 Other long term (current) drug therapy

== ENCOUNTER → 2016-12-31 | Outpatient (CLI) | payer OTHER ==
[~2016-12-31] MED LIST changes: -CARI350T28 PO; -CITA10TA8 PO; +CLON1TAB3 PO; +FLUO40CA8 PO; +GABA-112 PO; +INDSR80 PO; +MIRT15TA PO; +MOBIC 15 MG PO; -OXYB10TA PO; -PRED10TA PO; -PROP80TA2 PO; +ZCR20 PO
--- NOTE | 2016-12-31 09:36 | DIAGNOSTIC IMAGING REPORT ---
LEFT HIP UNILATERAL 2 VIEWS CLINICAL HISTORY: Left hip pain. COMPARISON: None FINDINGS: The left acetabulum is shallow. No fracture or suspicious lesion is present. There is no evidence for avascular necrosis. There is minimal joint space narrowing and osteophytosis of the left hip. IMPRESSION: 1. Shallow left acetabulum. 2. No acute fracture. 3. Minimal joint space narrowing and osteophytosis of the left hip. Electronically signed by: Reed Mendiola M.D. 12/31/2016 9:35 AM Dictated Date/Time: 12/31/2016 9:33 AM
== END | disposition home or self-care (01) ==
LOC: C.RADBC 09:18
PROVIDERS: ATTEND Physician Assistant
DX: M25.552 Pain in left hip (principal)